=== PATIENT | female | born 1990 | race Caucasian/White ===

== ENCOUNTER 2024-07-06 02:05 | Emergency (ER) | payer SELFPAY ==
[~2024-07-06] VITALS: Ht 170.2 cm; Wt 54.4 kg
[2024-07-06] MEDS ORDERED: NEOMY/BACITRA/POLYMYXIN B OINT UD PACKET TP ONE (03:09)
[2024-07-06] MEDS: NEOMY/BACITRA/POLYMYXIN B OINT UD PACKET TP ONE (03:22)
[2024-07-06] MEDS ORDERED: NEOM28.43 TP (03:48)
[2024-07-06 03:57] VITALS: BP 120/84; TEMP 98.6; O2SAT 100
== END 2024-07-06 03:58 | disposition home or self-care (01) ==
LOC: ER 02:10
DX: S99.821A Other specified injuries of right foot, initial encounter (principal); F17.210 Nicotine dependence, cigarettes, uncomplicated; Z59.01 Sheltered homelessness; W22.8XXA Striking against or struck by other objects, initial encounter; Y93.89 Activity, other specified; Y92.89 Other specified places as the place of occurrence of the external cause; Y99.8 Other external cause status
CPT/HCPCS: 73660; A4606; A4663